=== PATIENT | female | born 1940 | race Caucasian/White ===

== ENCOUNTER 2016-09-15 01:58 | Emergency (ER) | payer MEDICARE, BC ==
[2016-09-15 02:01] VITALS: TEMP 98
[2016-09-15 03:22] VITALS: BP 130/79; PULSE 70
== END 2016-09-15 03:22 | disposition home or self-care (01) ==
LOC: COL.ER 01:58
DX: S09.90XA Unspecified injury of head, initial encounter (principal); R42 Dizziness and giddiness; Z23 Encounter for immunization; Z90.710 Acquired absence of both cervix and uterus; Z87.59 Personal history of other complications of pregnancy, childbirth and the puerperium; W10.9XXA Fall (on) (from) unspecified stairs and steps, initial encounter; Y92.009 Unspecified place in unspecified non-institutional (private) residence as the place of occurrence of the external cause

== ENCOUNTER 2016-11-27 03:30 | Emergency (ER) | payer MEDICARE, BC ==
[~2016-11-27] VITALS: Ht 175.3 cm; Wt 84.1 kg
[2016-11-27 03:32] VITALS: TEMP 97.5
[2016-11-27 04:21] LABS: BASO # 0.1 (0.0-0.2); BASO % 0.8 % (0.0-2.0); EOS # 0.2 (0.0-0.7); EOS % 1.9 % (0-4.0); GRAN # 6.1 (1.4-6.5); GRAN % 59.2 % (42.2-75.2); HEMATOCRIT 41.1 % (37.0-47.0); HEMOGLOBIN 13.9 g/dl (12.5-16.0); LYMPH # 3.1 (1.2-3.4); LYMPH % 29.5 % (20.0-51.0); MEAN CELL VOLUME 90 fl (80.0-100.0); MEAN CORPUSCULAR HEMOGLOBIN 30 pg (27.0-31.0); MEAN CORPUSCULAR HGB CONC 34 g/dl (33.0-37.0); MEAN PLATELET VOLUME 9.2 fl (7.4-10.4); MONO # 0.9 (0.1-0.6); MONO % 8.4 % (1.7-9.3); PLATELET COUNT 379 K/mm3 (130-400); RED BLOOD COUNT 4.58 M/mm3 (4.10-5.30); REDCELL DISTRIBUTION WIDTH-CV 13.9 % (11.5-14.5); WHITE BLOOD COUNT 10.4 K/mm3 (4.8-10.8)
[2016-11-27 04:32] LABS: ANION GAP 10 mmol/L (7-16); BLOOD UREA NITROGEN 16 mg/dL (7-17); CALCIUM 9.6 mg/dL (8.4-10.2); CARBON DIOXIDE 23 mmol/L (22-30); CHLORIDE 106 mmol/L (98-107); CREATININE, serum 0.59 mg/dL (0.52-1.25); GLUCOSE 94 mg/dL (74-106); POTASSIUM 4.3 mmol/L (3.4-5.0); SODIUM 139 mmol/L (137-145)
[2016-11-27 04:34] LABS: C-REACTIVE PROTEIN < 0.5 mg/dL (0.0-0.9)
[2016-11-27] MEDS ORDERED: PERCOCET 325 MG1 TA2 PO (04:35)
[2016-11-27] MEDS ORDERED: ULTRAM 50MG TAB50 MG PO (04:35)
[2016-11-27 04:39] LABS: ERYTHROCYTE SEDIMENTATION RATE 15 mm/hr (0-30)
[2016-11-27 04:55] VITALS: BP 169/88; PULSE 63
== END 2016-11-27 04:55 | disposition home or self-care (01) ==
LOC: COL.ER 03:30
PROVIDERS: Emergency Medicine
DX: M54.2 Cervicalgia (principal); R51 Headache; Z90.710 Acquired absence of both cervix and uterus
CPT/HCPCS: J1170

== ENCOUNTER → 2017-09-25 | Outpatient (CLI) | payer MEDICARE, BC ==
[~2017-09-25] MED LIST: PERCOCET 325 MG1 TA2 PO; ULTRAM 50MG TAB50 MG PO
== END ==
LOC: COL.VAS 09:18
DX: I65.23 Occlusion and stenosis of bilateral carotid arteries (principal); I34.0 Nonrheumatic mitral (valve) insufficiency; H54.61 Unqualified visual loss, right eye, normal vision left eye

== ENCOUNTER → 2019-04-12 | Outpatient (CLI) | payer MEDICARE, BC | LOC: MC.RAD 07:07 | DX: Z12.31 Encounter for screening mammogram for malignant neoplasm of breast (principal) ==

== ENCOUNTER → 2020-04-19 | Outpatient (CLI) | payer MEDICARE, BC | LOC: MC.RAD 08:15 | DX: Z12.31 Encounter for screening mammogram for malignant neoplasm of breast (principal) ==

== ENCOUNTER 2020-07-14 11:01 | Emergency (ER) | payer MEDICARE, BC ==
[~2020-07-14] VITALS: Ht 175.3 cm; Wt 81.8 kg
[2020-07-14 11:13] VITALS: TEMP 97.6
[2020-07-14] MEDS ORDERED: ULTRAM 50MG TAB50 MG PO (12:19)
[2020-07-14] MEDS ORDERED: CRUTCHES MC (12:21)
[2020-07-14 12:54] VITALS: BP 141/93; PULSE 78
== END 2020-07-14 12:55 | disposition home or self-care (01) ==
LOC: COL.ER 11:01
DX: S83.91XA Sprain of unspecified site of right knee, initial encounter (principal); Z88.0 Allergy status to penicillin; Z88.1 Allergy status to other antibiotic agents; X50.1XXA Overexertion from prolonged static or awkward postures, initial encounter